=== PATIENT | female | born 1935 | race African-American/Black ===

== ENCOUNTER 2016-12-23 14:26 | Inpatient (IN) | payer MEDICARE, MEDICAID ==
[~2016-12-23] VITALS: Ht 154.9 cm; Wt 71.7 kg
[~2016-12-23 14:26] MED LIST: DOCU100C21 PO; FURO40TA5 PO; SOLI5TAB PO; TRAM50TA3 PO
[2016-12-23] MEDS ORDERED: NITROGLYCERIN 0.4MG TABLET SL SL PRN (15:15)
[2016-12-23] MEDS ORDERED: ONDANSETRON HCL 4MG/2ML VIAL IV STA (15:15)
[2016-12-23] MEDS ORDERED: MORPHINE SULFATE 4 MG/ML CPJ (NOT FOR IM USE) IV STA (15:15)
[2016-12-23] MEDS ORDERED: ASPIRIN 81MG TABLET PO STA (15:15)
[2016-12-23 16:04] LABS: BASOPHILS % 0.3 % (0.0-2.0); HEMATOCRIT. 43.1 % (36.0-48.0); HEMOGLOBIN. 14.4 g/dL (12.0-16.0); MEAN CORPUSCULAR HEMOGLOBIN 30.9 pg (28.0-32.0); MEAN CORPUSCULAR VOLUME 92.3 fL (81.0-99.0); MEAN PLATELET VOLUME 8.4 fl (7.4-10.4); MONOCYTES % 10.5 % (2.0-8.0); NEUTROPHILS % 62.2 % (40.0-76.0); PLATELET 223 x1000/uL (130-400); RED BLOOD CELL COUNT 4.67 mill/uL (4.2-5.4); RED CELL DISTRIBUTION WIDTH 15.1 % (11.6-14.6)
[2016-12-23 16:16] LABS: CARBON DIOXIDE 26 mEq/L (21-32); CHLORIDE 108 mEq/L (98-107)
[2016-12-23 16:18] LABS: PARTIAL THROMBOPLASTIN TIME 24.9 sec (24.0-34.0); PROTHROMBIN TIME 10.2 sec; TROPONIN I < 0.02 ng/mL (0.00-0.04)
[2016-12-23] MEDS ORDERED: ONDANSETRON HCL 4MG/2ML VIAL IV PRN (20:45)
[2016-12-23] MEDS ORDERED: TRAMADOL 50MG TABLET PO PRN (20:45)
[2016-12-23] MEDS ORDERED: ACETAMINOPHEN 325MG TABLET PO PRN (20:45)
[2016-12-23] MEDS ORDERED: ATORVASTATIN CALCIUM 10MG TABLET PO SCH (21:00)
[2016-12-23] MEDS ORDERED: GABAPENTIN 300MG CAPSULE PO SCH (21:00)
[2016-12-23] MEDS: DILTIAZEM HCL 240MG ER (24HR) PO SCH (21:54)
[2016-12-23] MEDS: HYDRALAZINE HCL 50MG TABLET PO SCH (21:54)
[2016-12-23] MEDS: SODIUM CHLORIDE 0.9% INJ 3ML FLUSH IVF SCH (21:54)
[2016-12-24] MEDS ORDERED: ACET-2178 PO (04:16)
[2016-12-24] MEDS: SODIUM CHLORIDE 0.9% INJ 3ML FLUSH IVF SCH (06:37)
[2016-12-24 06:58] LABS: CARBON DIOXIDE 28 mEq/L (21-32); CHLORIDE 108 mEq/L (98-107); PHOSPHORUS 3.6 mg/dL (2.5-4.9); TROPONIN I < 0.02 ng/mL (0.00-0.04)
[2016-12-24] MEDS ORDERED: OMEPRAZOLE 20MG CAPSULE EXTENDED RELEASE PO SCH (07:10)
[2016-12-24] MEDS ORDERED: ACETAMINOPHEN 325MG TABLET PO SCH (08:30)
[2016-12-24] MEDS: HYDRALAZINE HCL 50MG TABLET PO SCH (08:47)
[2016-12-24] MEDS: DILTIAZEM HCL 240MG ER (24HR) PO SCH (08:47)
[2016-12-24] MEDS ORDERED: LOSARTAN POTASSIUM 100 MG TABLET PO SCH (09:00)
[2016-12-24] MEDS ORDERED: DOCUSATE SODIUM 100MG CAPSULE PO SCH ×2 (09:00)
[2016-12-24] MEDS ORDERED: ENOXAPARIN 30MG/0.3ML SYR SUBCUT SCH (09:00)
[2016-12-24 10:22] LABS: BASOPHILS % 0.3 % (0.0-2.0); HEMATOCRIT. 39.9 % (36.0-48.0); HEMOGLOBIN. 13.3 g/dL (12.0-16.0); LYMPHOCYTES % 21.8 % (20.0-50.0); MEAN CORPUSCULAR HEMOGLOBIN 30.8 pg (28.0-32.0); MEAN CORPUSCULAR VOLUME 92.8 fL (81.0-99.0); MEAN PLATELET VOLUME 8.3 fl (7.4-10.4); MONOCYTES % 10.6 % (2.0-8.0); NEUTROPHILS % 66.3 % (40.0-76.0); PLATELET 210 x1000/uL (130-400); RED CELL DISTRIBUTION WIDTH 14.7 % (11.6-14.6)
[2016-12-24 12:37] VITALS: BP 129/63
== END 2016-12-24 15:55 | disposition home or self-care (01) | DRG 881 ==
LOC: ER 18:06 → 8WST 18:19 → EDBEDREQ 18:23 → ENRESERV 19:47
PROVIDERS: ADMIT Internal Medicine Nephrology; ATTEND Internal Medicine Nephrology
DX: F32.9 Major depressive disorder, single episode, unspecified (principal); K21.9 Gastro-esophageal reflux disease without esophagitis; E78.00 Pure hypercholesterolemia, unspecified; E78.5 Hyperlipidemia, unspecified; D64.9 Anemia, unspecified; M19.90 Unspecified osteoarthritis, unspecified site; M48.06 Spinal stenosis, lumbar region; I12.9 Hypertensive chronic kidney disease with stage 1 through stage 4 chronic kidney disease, or unspecified chronic kidney disease; E11.22 Type 2 diabetes mellitus with diabetic chronic kidney disease; N18.3 Chronic kidney disease, stage 3 (moderate); G47.33 Obstructive sleep apnea (adult) (pediatric); Z96.652 Presence of left artificial knee joint; Z53.29 Procedure and treatment not carried out because of patient's decision for other reasons; Z82.3 Family history of stroke; Z82.49 Family history of ischemic heart disease and other diseases of the circulatory system; Z98.1 Arthrodesis status; Z79.899 Other long term (current) drug therapy; Z84.1 Family history of disorders of kidney and ureter; M85.80 Other specified disorders of bone density and structure, unspecified site
CPT/HCPCS: 36415; 71101; 73030; 80053; 83690; 83880; 84100; 84484; 85025; 85610; 85730; 93005; 96374; 96375; 99285; J1650; J2270; J2405